=== PATIENT | male | born 1970 | race Two or more races ===

== ENCOUNTER 2020-08-20 01:19 | Emergency (ER) | payer SELFPAY ==
[~2020-08-20] VITALS: Ht 160 cm; Wt 82.1 kg
[2020-08-20] MEDS ORDERED: TETANUS-DIPTH-ACEL PERTUSSIS 0.5ML SYR Tdap IM ONE (02:15)
[2020-08-20] MEDS ORDERED: LIDOCAINE 2% (LOCAL ANESTH.) PF 5ml SDV ONE (02:23)
[2020-08-20 03:00] VITALS: BP 163/108
== END 2020-08-20 04:26 | disposition home or self-care (01) ==
LOC: ER 01:19
DX: S61.412A Laceration without foreign body of left hand, initial encounter (principal); W26.0XXA Contact with knife, initial encounter; Y93.89 Activity, other specified; Y92.89 Other specified places as the place of occurrence of the external cause; Y99.8 Other external cause status
CPT/HCPCS: 12001; 73120; J2001